=== PATIENT | female | born 1965 | race Caucasian/White ===

== ENCOUNTER 2022-01-05 13:14 | Outpatient (CLI) | payer OTHER | END 2022-01-05 13:15 | disposition home or self-care (01) | LOC: RAD 13:14 | PROVIDERS: ATTEND Internal Medicine | DX: J44.9 Chronic obstructive pulmonary disease, unspecified (principal) | CPT/HCPCS: 71046 ==

== ENCOUNTER 2022-02-01 15:39 | Outpatient (CLI) | payer OTHER ==
[2022-02-01 19:35] LABS: #Basophils 0.1 thou/uL (0.0-0.2); #Eosinphils 0.5 thou/uL (0.0-0.7); #Lymphocytes 2.8 thou/uL (1.20-3.40); #Monocytes 0.9 thou/uL (0.11-0.59); #Neutrophils 5.3 thou/uL (1.40-6.50); %Basophils 0.7 % (0.0-1.0); %Monocytes 9.8 % (0.0-10.0); %Neutrophils 55.5 % (42.0-75.0); Bilirubin Negative (Negative); Blood, Urine Negative (Negative); Clarity Clear (Clear); Glucose, Urine (Dipstick) Normal (Negative); Hemoglobin 14.4 g/dL (12.0-16.0); Ketone, Urine Negative (Negative); Leukocyte Negative Leu/uL (Negative); Mean Corpuscular HGB CONC 33.1 g/dL (32.0-36.0); Mean Corpuscular Hemoglobin 29.9 pg (27.0-31.0); Mean Corpuscular Volume 90.4 fl (78.0-98.0); Mean Platelet Volume 7.3 fL (7.4-10.4); Nitrite Negative (Negative); Platelet Count 349 thou/uL (130-400); Protein, Urine (Dipstick) Negative (Neg-Trace); RBC Distribution Width 12.3 % (11.5-14.5); Red Blood Cell (RBC) Count 4.81 mill/uL (4.20-5.40); Specific Gravity, Urine 1.023 (1.002-1.036); Urobilinogen Normal mg/dL (Less than 2); White Blood Cell (WBC) Count 9.5 thou/uL (4.8-10.8); pH, Urine 5.5 (5.0-9.0)
[2022-02-01 19:49] LABS: ALT (SGPT) 50 U/L (8-55); AST (SGOT) 33 U/L (5-34); Albumin 4.7 g/dL (3.5-5.0); Alkaline Phosphatase 79 U/L (40-110); Anion Gap 13 mmol/L (10-20); BUN (Urea Nitrogen) 17 mg/dL (9.8-20.1); Bilirubin, Total 0.4 mg/dL (0.2-1.2); Calc. Creatinine Clearance 0 mL/min (70-130); Calcium 9.9 mg/dL (7.8-10.44); Carbon Dioxide 29 mmol/L (22-29); Cardiac Risk 5.9 (Less than 4.5); Chloride 100 mmol/L (98-107); Cholesterol 305 mg/dl (< 200 Desired); Estimated GFR 86; Globulin 3.2 g/dL (2.4-3.5); Glucose 120 mg/dL (70-105); HDL Cholesterol 52 mg/dL (>60 Neg Risk); Potassium 4.1 mmol/L (3.5-5.1); Protein, Total 7.9 g/dL (6.0-8.3); Sodium 138 mmol/L (136-145); Triglycerides 467 mg/dL (Less than 150)
[2022-02-01 20:01] LABS: Creatinine, Urine 120.01 mg/dL (47-110); Microalbumin Urine 1.7 mg/dL (0.5-50.0); Microalbumin/Creat Ratio 14.2 mg/g (Less than 30)
[2022-02-01 20:06] LABS: Free T4 (Free Thyroxine) 1.05 ng/dL (0.70-1.48); Thyroid Stimulating Hormone 3.1172 uIU/mL (0.35-4.94)
== END 2022-02-01 15:40 | disposition home or self-care (01) ==
LOC: SCSRAD 15:39
PROVIDERS: ATTEND Family Medicine
DX: R10.9 Unspecified abdominal pain (principal); E11.9 Type 2 diabetes mellitus without complications
CPT/HCPCS: 36415; 74018; 80053; 80061; 81003; 82043; 84439; 84443; 84481; 85025

== ENCOUNTER 2022-04-23 19:30 | Outpatient (CLI) | payer OTHER | END 2022-04-23 19:31 | disposition home or self-care (01) | LOC: SLEEPLAB 19:30 | PROVIDERS: ATTEND Internal Medicine | DX: G47.33 Obstructive sleep apnea (adult) (pediatric) (principal); R53.83 Other fatigue; K21.9 Gastro-esophageal reflux disease without esophagitis; R06.83 Snoring; R09.02 Hypoxemia | CPT/HCPCS: 95811 ==